=== PATIENT | male | born 1995 | race Caucasian/White ===

== ENCOUNTER 2017-10-07 08:42 | Emergency (ER) | payer BC, OTHER ==
[2017-10-07 09:53] LABS: Potassium 4.4 mEq/L (3.6-5.0)
--- NOTE | 2017-10-07 10:29 | ER ---
Nurse's Notes [facility] Name: Roberto Teague Age: 22 yrs Sex: Male : 1995 Arrival Date: 10/07/2017 Time: 08:44 Bed 14 Private MD: Lisandro Slade Diagnosis: Chest pain, unspecified-resolved;Pain in right hand Presentation: 10/07 08:52 Presenting complaint: Patient states: working on truck when patient began having a ss sudden onset of chest pain described as sharp. Pt also reports that he is anxious at this time. Transition of care: patient was not received from another setting of care. Onset of symptoms was October 07, 2017. Care prior to arrival: None. 08:52 Method Of Arrival: Ambulatory ss 08:52 Acuity: MARY 3 ss Historical: - Allergies: 08:54 No Known Allergies; ss - Home Meds: 08:54 None [Active]; ss - PMHx: 08:54 ADD/ADHD; ss - PSHx: 08:54 None; ss - Immunization history:: Adult Immunizations up to date. - Social history:: Smoking status: Patient uses tobacco products, smokes one pack cigarettes per day. Screenin:13 Abuse screen: Denies threats or abuse. Denies injuries from another. Nutritional hb screening: No deficits noted. Tuberculosis screening: No symptoms or risk factors identified. Fall Risk None identified. Assessment: 09:10 General: Appears in no apparent distress. Behavior is calm, cooperative. Pain: Denies hb pain. Neuro: Level of Consciousness is awake, alert, obeys commands, Oriented to person, place, time, situation, Speech is slurred. Cardiovascular: Capillary refill < 3 seconds Patient's skin is warm and dry. Respiratory: Airway is patent Trachea midline Respiratory effort is even, unlabored, Respiratory pattern is regular, symmetrical, Breath sounds are clear bilaterally. GI: No signs and/or symptoms were reported involving the gastrointestinal system. : No signs and/or symptoms were reported regarding the genitourinary system. EENT: No signs and/or symptoms were reported regarding the EENT system. Derm: No signs and/or symptoms reported regarding the dermatologic system. Skin is pink, warm \T\ dry. Musculoskeletal: No signs and/or symptoms reported regarding the musculoskeletal system. 10:27 Reassessment: Patient appears in no apparent distress at this time. Patient and/or ph family updated on plan of care and expected duration. Pain level reassessed. Pt resting quietly with eyes closed, respirations even and unlabored, awaiting lab results, family at bedside. Vital Signs: 08:54 BP 143 / 106; Pulse 86; Resp 19; Pulse Ox 99% on R/A; Weight 81.65 kg; Height 6 ft. 3 ss in. (190.50 cm); Pain 4/10; 08:54 BP 152 / 98; Pulse 79; ss 10:28 BP 146 / 91; Pulse 81; Resp 18; Pulse Ox 99% on R/A; ph 08:54 Body Mass Index 22.50 (81.65 kg, 190.50 cm) ss ED Course: 08:44 Patient arrived in ED. as 08:45 Lisandro Slade MD is Private Physician. as 08:53 Triage completed. ss 08:54 Shalonda Alcocer FNP-C is [facility]. kb 08:54 Sean Hilario MD is Attending Physician. kb 08:54 Arm band placed on right wrist. ss 09:10 Inserted saline lock: 18 gauge in right antecubital area, using aseptic technique. hb Blood collected. Patient maintains SpO2 saturation greater than 95% on room air. 09:13 Patient has correct armband on for positive identification. Bed in low position. Call hb light in reach. Side rails up X 1. telemetry monitor on. Pulse ox on. NIBP on. 09:20 Alaina Lopez, RN is Primary Nurse. ph 09:23 EKG done, by technical system analyst. reviewed by Shalonda HUFFMAN. vh 09:26 Patient moved to radiology via wheelchair. mh1 09:30 X-ray completed. Patient tolerated procedure well. Patient moved back from radiology. mh1 10:42 No provider procedures requiring assistance completed. IV discontinued, intact, hb bleeding controlled, No redness/swelling at site. Pressure dressing applied. Administered Medications: No medications were administered Outcome: 10:29 Discharge ordered by . kb 10:42 Discharged to home ambulatory. hb 10:42 Condition: good 10:42 Discharge instructions given to patient, family, Instructed on discharge instructions, follow up and referral plans. Demonstrated understanding of instructions, follow-up care. 10:43 Patient left the ED. hb Signatures: Shalonda Alcocer FNP-C FNP-Ckb Cheryl Lucero [facility] Nicky Jo Shelby, DAMON RN ss Anabela Brush Patricia, RN RN Renate Mcintyre RN RN
--- NOTE | 2017-10-07 10:29 | EDPHYS ---
Physician Documentation [facility] Name: Roberto Teague Age: 22 yrs Sex: Male : 1995 Arrival Date: 10/07/2017 Time: 08:44 Bed 14 Private MD: Lisandro Slade ED Physician Sean Hilario HPI: 10/07 09:01 This 22 yrs old Male presents to ER via Ambulatory with complaints of Chest kb Pain. 09:01 The patient or guardian reports chest pain that is located primarily in the anterior kb chest wall, left. The pain does not radiate. Associated signs and symptoms: The patient has no apparent associated signs or symptoms. The chest pain is described as sharp. Duration: The patient or guardian reports a single episode, that is now resolved, that lasted 45 minute(s). Modifying factors: The symptoms are alleviated by nothing. the symptoms are aggravated by nothing. Severity of pain: At its worst the pain was mild moderate in the emergency department the pain has resolved. The patient has not experienced similar symptoms in the past. The patient has not recently seen a physician. Pt reports he was installing a light bar on his truck, was getting on top and underneath it to do this and started having left sided sharp chest pain. STates the pain lasted for 45 minutes and went away. Reports he currently has pain to neck, back and right hand that has been there for "months and months." Denies injury or trauma. . Historical: - Allergies: 08:54 No Known Allergies; ss - Home Meds: 08:54 None [Active]; ss - PMHx: 08:54 ADD/ADHD; ss - PSHx: 08:54 None; ss - Immunization history:: Adult Immunizations up to date. - Social history:: Smoking status: Patient uses tobacco products, smokes one pack cigarettes per day. ROS: 09:01 Constitutional: Negative for fever, chills, and weight loss, ENT: Negative for injury, kb pain, and discharge, Respiratory: Negative for shortness of breath, cough, wheezing, and pleuritic chest pain, Abdomen/GI: Negative for abdominal pain, nausea, vomiting, diarrhea, and constipation, : Negative for injury, bleeding, discharge, and swelling, MS/Extremity: Negative for injury and deformity, Skin: Negative for injury, rash, and discoloration, Neuro: Negative for headache, weakness, numbness, tingling, and seizure. 09:01 Neck: Positive for pain at rest. 09:01 Cardiovascular: Positive for chest pain, Negative for edema, orthopnea, palpitations, paroxysmal nocturnal dyspnea. 09: Back: Positive for pain at rest. 09:01 MS/extremity: Positive for pain, of the dorsum of right hand. Exam: 09: Constitutional: This is a well developed, well nourished patient who is awake, alert, kb and in no acute distress. Head/Face: Normocephalic, atraumatic. Neck: Trachea midline, no thyromegaly or masses palpated, and no cervical lymphadenopathy. Supple, full range of motion without nuchal rigidity, or vertebral point tenderness. No Meningismus. Chest/axilla: Normal chest wall appearance and motion. Nontender with no deformity. No lesions are appreciated. Cardiovascular: Regular rate and rhythm with a normal S1 and S2. No gallops, murmurs, or rubs. Normal PMI, no JVD. No pulse deficits. Respiratory: Lungs have equal breath sounds bilaterally, clear to auscultation and percussion. No rales, rhonchi or wheezes noted. No increased work of breathing, no retractions or nasal flaring. Abdomen/GI: Soft, non-tender, with normal bowel sounds. No distension or tympany. No guarding or rebound. No evidence of tenderness throughout. Back: No spinal tenderness. No costovertebral tenderness. Full range of motion. Skin: Warm, dry with normal turgor. Normal color with no rashes, no lesions, and no evidence of cellulitis. MS/ Extremity: Pulses equal, no cyanosis. Neurovascular intact. Full, normal range of motion. Neuro: Awake and alert, GCS 15, oriented to person, place, time, and situation. Cranial nerves II-XII grossly intact. Motor strength 5/5 in all extremities. Sensory grossly intact. Cerebellar exam normal. Normal gait. : ECG was reviewed by the Attending Physician. rn Vital Signs: 08:54 BP 143 / 106; Pulse 86; Resp 19; Pulse Ox 99% on R/A; Weight 81.65 kg; Height 6 ft. 3 ss in. (190.50 cm); Pain 4/10; 08:54 BP 152 / 98; Pulse 79; ss 10:28 BP 146 / 91; Pulse 81; Resp 18; Pulse Ox 99% on R/A; ph 08:54 Body Mass Index 22.50 (81.65 kg, 190.50 cm) ss MDM: 08:55 Patient medically screened. kb 09:01 Data reviewed: vital signs, nurses notes. Data interpreted: Pulse oximetry: on room air kb is 99 %. Interpretation: normal. 10:28 Counseling: I had a detailed discussion with the patient and/or guardian regarding: the kb historical points, exam findings, and any diagnostic results supporting the discharge/admit diagnosis, lab results, radiology results, the need for outpatient follow up, a family practitioner, to return to the emergency department if symptoms worsen or persist or if there are any questions or concerns that arise at home. 10/07 09:01 Order name: Troponin (emerg Dept Use Only) kb 10/07 09:01 Order name: Basic Metabolic Panel 10/07 09:01 Order name: Hand Right 3 View XRAY kb 10/07 09:01 Order name: Chest Pa And Lat (2 Views) XRAY 10/07 09:40 Order name: Troponin (Emerg Dept Use Only); Complete Time: 09:43 EDMS 10/07 09:54 Order name: Basic Metabolic Panel; Complete Time: 09:54 EDMS 10/07 09:01 Order name: EKG; Complete Time: 09:01 kb 10/07 09:01 Order name: EKG - Nurse/Tech; Complete Time: 09:22 kb EC:26 Rate is 75 beats/min. Rhythm is regular. QRS [place] is Normal. MD interval is normal. QRS rn interval is normal. QT interval is normal. No Q waves. T waves are Normal. No ST changes noted. Clinical impression: Normal ECG. Interpreted by me. Administered Medications: No medications were administered Disposition: 10:57 Co-signature as Attending Physician, Sean Hilario MD. rn Disposition: 10/07/17 10:29 Discharged to Home. Impression: Chest pain, unspecified - resolved, Pain in right hand. - Condition is Stable. - Discharge Instructions: Musculoskeletal Pain, Nonspecific Chest Pain, [id number]. - Medication Reconciliation Form, Thank You Letter, Antibiotic Education, Prescription Opioid Use, Work release form form. - Follow up: Emergency Department; When: As needed; Reason: Worsening of condition. Follow up: Private Physician; When: 2 - 3 days; Reason: Recheck today's complaints, Continuance of care, Re-evaluation by your physician. Signatures: Dispatcher [employer] Shalonda Islas, NATHANAEL CAMPOS-Sean Lanza MD MD rn Smirch, Shelby, RN RN Renate Boyce RN RN
--- NOTE | 2017-10-07 10:47 | RAD REPORT ---
EXAM DESCRIPTION: RAD - Chest Pa And Lat (2 Views) - 10/07/2017 9:34 am CLINICAL HISTORY: Chest pain chest pain COMPARISON: None. TECHNIQUE: PA and lateral views of the chest were obtained. FINDINGS: The lungs are clear. Heart size is normal and central vasculature is within normal limit s. No pleural effusion or pneumothorax seen. No acute bony finding noted. No aortic abnormality. IMPRESSION: No acute cardiopulmonary process.
--- NOTE | 2017-10-07 10:48 | RAD REPORT ---
EXAM DESCRIPTION: RAD - Hand Right 3 View - 10/07/2017 9:33 am CLINICAL HISTORY: Hand pain following trauma COMPARISON: None. FINDINGS: No fracture is identified. There is no dislocation or periosteal reaction noted. No forei gn body or other soft tissue abnormality. IMPRESSION: Negative right hand examination.
--- NOTE | 2017-10-07 14:47 | EKG ---
Test Date: 2017-10-07 Test Time: 09:03:04 Mortgage Closing Clerk: TRINH MEASUREMENT RESULTS: Intervals: Rate: 75 MS: 132 QRSD: 100 QT: 372 QTc: 415 [place]: P: 35 MS: 132 QRS: 50 T: 30 INTERPRETIVE STATEMENTS: Normal sinus rhythm Normal ECG No previous ECG available for comparison Electronically Signed On 10-07-17 14:46:51 CDT by Yohannes Bagley
== END 2017-10-07 10:43 | disposition home or self-care (01) ==
LOC: ER 08:42
DX: M79.641 Pain in right hand (principal); F17.210 Nicotine dependence, cigarettes, uncomplicated
CPT/HCPCS: 36415; 71046; 80048; 84484; 93005; 99285